=== PATIENT | female | born 1985 | race Two or more races ===

== ENCOUNTER 2021-06-02 14:26 | Emergency (ER) | payer OTHER ==
[~2021-06-02] VITALS: Ht 170.2 cm; Wt 83.5 kg
[2021-06-02] MEDS ORDERED: PRENATAL + DHA1 EAC1 PO (14:35)
== END 2021-06-02 15:48 | disposition home or self-care (01) ==
LOC: ER 14:26
DX: U07.1 COVID-19 (principal); Z3A.29 29 weeks gestation of pregnancy; O26.893 Other specified pregnancy related conditions, third trimester

== ENCOUNTER 2021-08-07 08:33 | Inpatient (IN) | payer OTHER ==
[~2021-08-07] VITALS: Ht 170.2 cm; Wt 3.2 kg
[~2021-08-07 08:33] MED LIST: PRENATAL + DHA1 EAC1 PO
[2021-08-07] MEDS ORDERED: CHILDREN'S ASPI81 MG PO (09:27)
[2021-08-09] MEDS ORDERED: FUSION PLUS CA1 EACH (11:02)
== END 2021-08-10 13:53 | disposition home or self-care (01) | DRG 788 ==
LOC: LDR 08:33 → OB/GYN 08:33
PROVIDERS: ADMIT Specialist; ATTEND Specialist
PROC: 4A1HXCZ Monitoring of Products of Conception, Cardiac Rate, External Approach (ICD-10-PCS; 2021-08-07)
PROC: 10D00Z1 Extraction of Products of Conception, Low, Open Approach (ICD-10-PCS; principal; 2021-08-07 10:00)
DX: O32.8XX0 Maternal care for other malpresentation of fetus, not applicable or unspecified (principal); Z3A.39 39 weeks gestation of pregnancy; Z37.0 Single live birth; Z20.822 Contact with and (suspected) exposure to COVID-19

== ENCOUNTER 2021-08-18 23:22 | Emergency (ER) | payer OTHER ==
[~2021-08-18] VITALS: Ht 170.2 cm; Wt 82.6 kg
[~2021-08-18 23:22] MED LIST changes: +CHILDREN'S ASPI81 MG PO; +FUSION PLUS CA1 EACH
[2021-08-19] MEDS ORDERED: ZOFRAN8 MG PO (07:38)
[2021-08-19] MEDS ORDERED: PEPCID40 MG PO (07:38)
== END 2021-08-19 07:47 ==
LOC: ER 23:22
DX: K52.9 Noninfective gastroenteritis and colitis, unspecified (principal)

== ENCOUNTER 2022-08-15 23:17 | Outpatient (CLI) | payer OTHER ==
[~2022-08-15 23:17] MED LIST changes: +PEPCID40 MG PO; +ZOFRAN8 MG PO
[2022-08-15] MEDS ORDERED: CHILDREN'S ASPI81 MG PO (23:21)
[2022-08-15] MEDS ORDERED: PRENATAL TABLE1 EAC1 PO (23:21)
== END 2022-08-16 13:32 | disposition home or self-care (01) ==
LOC: OBS/DEL 23:17
PROVIDERS: ATTEND Specialist
DX: O26.893 Other specified pregnancy related conditions, third trimester (principal); K52.89 Other specified noninfective gastroenteritis and colitis; Z3A.31 31 weeks gestation of pregnancy

== ENCOUNTER 2022-09-22 01:48 | Outpatient (CLI) | payer OTHER ==
[~2022-09-22 01:48] MED LIST changes: +PRENATAL TABLE1 EAC1 PO
[2022-09-22] MEDS ORDERED: SYNTHROID50 MCG PO (02:39)
== END 2022-09-22 02:16 | disposition home or self-care (01) ==
LOC: OBS/DEL 01:48
PROVIDERS: ATTEND Specialist
DX: O26.893 Other specified pregnancy related conditions, third trimester (principal); Z3A.37 37 weeks gestation of pregnancy

== ENCOUNTER 2022-09-29 07:45 | Inpatient (IN) | payer OTHER ==
[~2022-09-29] VITALS: Ht 170.2 cm; Wt 3.2 kg
[~2022-09-29 07:45] MED LIST changes: +SYNTHROID50 MCG PO
[2022-10-05] MEDS ORDERED: COLACE100 MG PO (08:18)
[2022-10-05] MEDS ORDERED: SIMETHICONE125 M1 PO (08:18)
[2022-10-05] MEDS ORDERED: IBU800 MG PO (08:19)
== END 2022-10-05 12:31 | disposition home or self-care (01) | DRG 788 ==
LOC: O/R 10-02 05:41 → OB/GYN 10-02 07:45
PROVIDERS: ADMIT Specialist; ATTEND Specialist
PROC: 4A1HXCZ Monitoring of Products of Conception, Cardiac Rate, External Approach (ICD-10-PCS; 2022-10-02)
PROC: 10D00Z1 Extraction of Products of Conception, Low, Open Approach (ICD-10-PCS; principal; 2022-10-02 11:30)
DX: O34.211 Maternal care for low transverse scar from previous cesarean delivery (principal); Z3A.38 38 weeks gestation of pregnancy; Z37.0 Single live birth; Z20.822 Contact with and (suspected) exposure to COVID-19

== ENCOUNTER → 2024-06-03 | Emergency (ER) | payer OTHER ==
[~2024-06-03] VITALS: Ht 162.6 cm; Wt 68.0 kg
[~2024-06-03] MED LIST changes: +ALBUTEROL2.5 MG/3 M IH; +COLACE100 MG PO; +GUAIFEN/DEXTROMETHORPHAN/PE 10 ML BLIST.PACK PO ONE; +IBU800 MG PO; +OSEL75CA PO; +PHENAGIL TABLE1 EACH PO; +SIMETHICONE125 M1 PO; +ZYNCOF 20-400120 ML PO
[2024-06-03 17:24] VITALS: BP 108/72; O2SAT 98
[2024-06-04 00:51] LABS: HEMOGLOBIN 13.7 g/dL (12.0-15.00); MEAN CELL VOLUME 95.8 fL (80.00-100.00); MEAN CORPUSCULAR HGB CONC 34.4 g/dl (32.0-36.0); PLATELET COUNT 218 K/uL (150-450); RED BLOOD COUNT 4.17 M/uL (4.00-6.00); RED CELL DISTRIBUTION WIDTH 12.6 % (11.5-14.5)
== END | disposition home or self-care (01) ==
LOC: ER 17:04
PROVIDERS: Preventive Medicine Public Health & General Preventive Medicine
DX: J11.1 Influenza due to unidentified influenza virus with other respiratory manifestations (principal); Z20.822 Contact with and (suspected) exposure to COVID-19; E03.9 Hypothyroidism, unspecified